=== PATIENT | female | born 1995 ===

== ENCOUNTER 2020-08-02 13:30 | Inpatient (IN) | payer OTHER ==
[~2020-08-02] VITALS: Ht 152.4 cm; Wt 2.7 kg
[2020-08-12] MEDS ORDERED: PRENATAL CAPLE1 EAC1 PO (05:57)
[2020-08-14] MEDS ORDERED: RHOGAM ULTR1500 UNIT IM (07:46)
[2020-08-15] MEDS ORDERED: IBU600 MG PO (08:38)
[2020-08-15] MEDS ORDERED: IRON325 MG PO (08:38)
== END 2020-08-15 11:55 | disposition home or self-care (01) | DRG 788 ==
LOC: OB/GYN 08-12 05:39 → O/R 08-12 05:39 → LDR 08-12 05:39 → O/R 08-12 10:11 → OB/GYN 08-12 15:52
PROVIDERS: ADMIT Specialist; ATTEND Specialist
PROC: 10907ZC Drainage of Amniotic Fluid, Therapeutic from Products of Conception, Via Natural or Artificial Opening (ICD-10-PCS; 2020-08-12)
PROC: 3E033VJ Introduction of Other Hormone into Peripheral Vein, Percutaneous Approach (ICD-10-PCS; 2020-08-12)
PROC: 4A1HXFZ Monitoring of Products of Conception, Cardiac Rhythm, External Approach (ICD-10-PCS; 2020-08-12)
PROC: 10D00Z1 Extraction of Products of Conception, Low, Open Approach (ICD-10-PCS; principal; 2020-08-12 09:00)
DX: O62.1 Secondary uterine inertia (principal); O90.81 Anemia of the puerperium; D64.9 Anemia, unspecified; O99.824 Streptococcus B carrier state complicating childbirth; Z3A.39 39 weeks gestation of pregnancy; Z37.0 Single live birth; Z20.822 Contact with and (suspected) exposure to COVID-19

== ENCOUNTER → 2020-08-09 | Outpatient (CLI) | payer OTHER ==
[~2020-08-09] MED LIST: IBU600 MG PO; IRON325 MG PO; PRENATAL CAPLE1 EAC1 PO; RHOGAM ULTR1500 UNIT IM
== END | disposition home or self-care (01) ==
LOC: PRENATAL 09:53
PROVIDERS: ATTEND Obstetrics & Gynecology Maternal & Fetal Medicine
DX: O35.0XX1 Maternal care for (suspected) central nervous system malformation in fetus, fetus 1 (principal); O35.3XX1 Maternal care for (suspected) damage to fetus from viral disease in mother, fetus 1; O98.513 Other viral diseases complicating pregnancy, third trimester; Z36.89 Encounter for other specified antenatal screening; Z3A.37 37 weeks gestation of pregnancy

== ENCOUNTER 2020-08-11 20:09 | Outpatient (CLI) | payer OTHER ==
[2020-08-12] MEDS ORDERED: PRENATAL CAPLE1 EAC1 PO (05:57)
== END 2020-08-12 07:48 | disposition still patient (30) ==
LOC: OBS/DEL 20:09
PROVIDERS: ATTEND Specialist
DX: O47.1 False labor at or after 37 completed weeks of gestation (principal); Z20.828 Contact with and (suspected) exposure to other viral communicable diseases